=== PATIENT | female | born 1965 | race Caucasian/White ===

== ENCOUNTER 2021-05-21 08:30 | Outpatient (CLI) | payer BC, SELFPAY ==
--- NOTE | ~2021-05-21 | MR_ITS ---
EXAMINATION: MR knee LT wo con DATE: 05/21/2021 09:41 INDICATION: Chronic left knee pain. TECHNIQUE: Magnetic resonance imaging (MRI) of the left knee was performed without intravenous contra st. Sequences included axial PD-weighted FS FSE, coronal PD-weighted FSE and PD-weighted FS FSE, sagi ttal PD-weighted FSE, and sagittal T2-weighted FS FSE. COMPARISON: None. FINDINGS: Medial compartment: There is a radial tear of posterior root of medial meniscus. There is partial-thickness cartilage los s of femoral condyle and tibial condyle. There is focal deep partial thickness cartilage loss of tibi al condyle medially with moderate subchondral edema-like marrow signal intensity. There is deep parti al thickness cartilage loss of femoral condyle involving the central, medial, and lateral articular s urface. Osteophytes are noted. Lateral compartment: There is an undersurface horizontal tear of posterior root of lateral meniscus. There is shallow part ial-thickness cartilage loss of tibial condyle. There is cartilage surface irregularity of femoral co ndyle. Marginal osteophytes are noted. Patellofemoral compartment: There is full-thickness cartilage loss of patellar lateral facet with mild subchondral edema-like sig nal intensity. There is deep partial thickness cartilage loss of patellar medial facet. There is full -thickness loss of central and lateral trochlea with mild subchondral edema-like signal intensity. Os teophytes are noted. Ligaments and tendons: The anterior and posterior cruciate ligaments are normal. There are changes of prior sprains of media l collateral ligament and fibular collateral ligament characterized by increased signal intensity pro ximally. There is mild patellar tendinopathy. Fluid: There is a small knee joint effusion. There is a moderate-sized Cristobal's cyst. There is mild prepatell ar and superficial infrapatellar bursitis. IMPRESSION: 1. Severe chondrosis of patellofemoral compartment, moderate chondrosis of medial compartment, and mi ld chondrosis of lateral compartment. 2. Tears of medial and lateral menisci. 3. Small knee joint effusion. 4. Moderate-sized Cristobal's cyst. Reviewed, dictated and finalized at location B. [employer] IMPRESSION: 1. Severe chondrosis of patellofemoral compartment, moderate chondrosis of medi al compartment, and mild chondrosis of lateral compartment. 2. Tears of medial and lateral menisci. 3. Small knee joint effusion. 4. Moderate-sized Cristobal's cyst.
== END 2021-05-21 08:31 | disposition home or self-care (01) ==
LOC: ANHIMG 08:39
PROVIDERS: Visit Provider Orthopaedic Surgery
DX: S83.282A Other tear of lateral meniscus, current injury, left knee, initial encounter (principal); S83.242A Other tear of medial meniscus, current injury, left knee, initial encounter; M71.22 Synovial cyst of popliteal space [Baker], left knee
CPT/HCPCS: 73721